=== PATIENT | female | born 1970 | race Caucasian/White ===

== ENCOUNTER 2018-04-20 22:11 | Emergency (ER) | payer OTHER ==
[~2018-04-20] VITALS: Ht 165.1 cm; Wt 108.9 kg
[~2018-04-20 22:11] MED LIST: AVALIDE 150/12.1 TAB; CATAFLAM50 MG PO; LISINOPRIL2.5 MG; SINGULAIR10 MG; ULTRACET PO
== END 2018-04-21 01:57 | disposition home or self-care (01) ==
LOC: ER 22:11
DX: N39.0 Urinary tract infection, site not specified (principal); R10.2 Pelvic and perineal pain

== ENCOUNTER 2018-10-07 11:46 | Emergency (ER) | payer OTHER ==
[~2018-10-07] VITALS: Ht 165.1 cm; Wt 108.9 kg
[2018-10-07] MEDS ORDERED: CIPRO500 MG PO (15:26)
== END 2018-10-07 21:31 | disposition home or self-care (01) ==
LOC: ER 11:46
DX: N39.0 Urinary tract infection, site not specified (principal)

== ENCOUNTER 2018-11-02 08:24 | Emergency (ER) | payer OTHER ==
[~2018-11-02] VITALS: Ht 165.1 cm; Wt 113.4 kg
[~2018-11-02 08:24] MED LIST changes: +CIPRO500 MG PO
== END 2018-11-02 11:15 | disposition home or self-care (01) ==
LOC: ER 08:24
DX: M62.838 Other muscle spasm (principal)

== ENCOUNTER 2019-01-27 17:13 | Emergency (ER) | payer OTHER ==
[~2019-01-27] VITALS: Ht 165.1 cm; Wt 113.4 kg
[2019-01-27] MEDS ORDERED: PRILOSEC10 MG (17:21)
== END 2019-01-27 22:35 | disposition home or self-care (01) ==
LOC: ER 17:13
DX: J06.9 Acute upper respiratory infection, unspecified (principal)

== ENCOUNTER 2019-05-12 17:26 | Emergency (ER) | payer OTHER ==
[~2019-05-12] VITALS: Ht 165.1 cm; Wt 108.9 kg
[~2019-05-12 17:26] MED LIST changes: +PRILOSEC10 MG
[2019-05-12] MEDS ORDERED: KETO10TA2 PO (19:54)
[2019-05-12] MEDS ORDERED: SKELAXIN800 MG PO (19:54)
== END 2019-05-12 20:00 | disposition home or self-care (01) ==
LOC: ER 17:26
DX: M62.830 Muscle spasm of back (principal)

== ENCOUNTER 2019-11-13 09:55 | Emergency (ER) | payer OTHER ==
[~2019-11-13] VITALS: Ht 165.1 cm; Wt 108.9 kg
[~2019-11-13 09:55] MED LIST changes: +KETO10TA2 PO; +SKELAXIN800 MG PO
== END 2019-11-13 14:14 | disposition home or self-care (01) ==
LOC: ER 09:55
DX: N39.0 Urinary tract infection, site not specified (principal); D25.1 Intramural leiomyoma of uterus

== ENCOUNTER 2020-09-13 15:23 | Emergency (ER) | payer OTHER ==
[~2020-09-13] VITALS: Ht 165.1 cm; Wt 108.9 kg
[2020-09-13] MEDS ORDERED: AVALIDE 300-121 EACH (16:22)
[2020-09-13] MEDS ORDERED: DICLOFENAC SODI75 MG PO (16:45)
[2020-09-13] MEDS ORDERED: NORFLEX100MG PO (16:45)
== END 2020-09-13 17:09 | disposition home or self-care (01) ==
LOC: ER 15:23
DX: M54.5 Low back pain (principal)

== ENCOUNTER 2021-04-03 20:19 | Emergency (ER) | payer OTHER ==
[~2021-04-03] VITALS: Ht 165.1 cm; Wt 109.8 kg
[~2021-04-03 20:19] MED LIST changes: +AVALIDE 300-121 EACH; +DICLOFENAC SODI75 MG PO; +NORFLEX100MG PO
[2021-04-03] MEDS ORDERED: ZESTRIL5 MG (20:35)
[2021-04-03] MEDS ORDERED: KETO10TA2 PO (23:01)
== END 2021-04-03 23:11 | disposition home or self-care (01) ==
LOC: ER 20:19
DX: S93.491A Sprain of other ligament of right ankle, initial encounter (principal); X50.0XXA Overexertion from strenuous movement or load, initial encounter; Y93.89 Activity, other specified; Y92.89 Other specified places as the place of occurrence of the external cause; Y99.8 Other external cause status

== ENCOUNTER 2021-05-21 16:24 | Emergency (ER) | payer OTHER ==
[~2021-05-21] VITALS: Ht 165.1 cm; Wt 111.1 kg
[~2021-05-21 16:24] MED LIST changes: +ZESTRIL5 MG
[2021-05-21] MEDS ORDERED: AVALIDE 300-121 EACH (16:39)
== END 2021-05-21 17:43 | disposition home or self-care (01) ==
LOC: ER 16:24
DX: M65.272 Calcific tendinitis, left ankle and foot (principal)

== ENCOUNTER 2021-08-17 08:00 | Outpatient (CLI) | payer OTHER | END 2021-08-17 08:30 | disposition home or self-care (01) | LOC: PPH VACUNA 08:00 | PROVIDERS: ATTEND Emergency Medicine Pediatric Emergency Medicine | DX: Z23 Encounter for immunization (principal) ==

== ENCOUNTER 2021-11-08 17:40 | Emergency (ER) | payer OTHER ==
[~2021-11-08] VITALS: Ht 165.1 cm; Wt 113.4 kg
[2021-11-09] MEDS ORDERED: LEVOFLOXACIN750 MG PO (00:48)
[2021-11-09] MEDS ORDERED: IPRAT-ALBUT 0.5-3 ML IH (00:48)
[2021-11-09] MEDS ORDERED: BUDESONIDE0.5 MG/2 M IH (00:48)
[2021-11-09] MEDS ORDERED: MUCINEX DM ER1 EAC1 PO (00:48)
== END 2021-11-09 03:27 ==
LOC: ER 17:40
DX: J45.901 Unspecified asthma with (acute) exacerbation (principal); B96.0 Mycoplasma pneumoniae [M. pneumoniae] as the cause of diseases classified elsewhere; Z20.822 Contact with and (suspected) exposure to COVID-19

== ENCOUNTER 2021-12-19 09:54 | Outpatient (CLI) | payer OTHER ==
[~2021-12-19 09:54] MED LIST changes: +BUDESONIDE0.5 MG/2 M IH; +IPRAT-ALBUT 0.5-3 ML IH; +LEVOFLOXACIN750 MG PO; +MUCINEX DM ER1 EAC1 PO
== END 2021-12-19 09:57 | disposition home or self-care (01) ==
LOC: TOM 09:54
PROVIDERS: ATTEND General Practice
DX: R22.1 Localized swelling, mass and lump, neck (principal)

== ENCOUNTER 2022-04-04 08:16 | Emergency (ER) | payer OTHER ==
[~2022-04-04] VITALS: Ht 165.1 cm; Wt 115.7 kg
== END 2022-04-04 13:31 | disposition home or self-care (01) ==
LOC: ER 08:16
DX: J45.909 Unspecified asthma, uncomplicated (principal); Z20.822 Contact with and (suspected) exposure to COVID-19

== ENCOUNTER 2022-08-22 12:20 | Emergency (ER) | payer OTHER ==
[~2022-08-22] VITALS: Ht 165.1 cm; Wt 113.4 kg
[2022-08-22] MEDS ORDERED: AVALIDE 300-121 EACH (12:53)
== END 2022-08-22 16:16 | disposition home or self-care (01) ==
LOC: ER 12:20
DX: J06.9 Acute upper respiratory infection, unspecified (principal); R53.81 Other malaise; R06.7 Sneezing; Z20.822 Contact with and (suspected) exposure to COVID-19

== ENCOUNTER 2022-08-26 21:54 | Emergency (ER) | payer OTHER ==
[~2022-08-26] VITALS: Ht 165.1 cm; Wt 113.4 kg
== END 2022-08-27 03:29 | disposition home or self-care (01) ==
LOC: ER 21:54
DX: J45.901 Unspecified asthma with (acute) exacerbation (principal); Z20.822 Contact with and (suspected) exposure to COVID-19

== ENCOUNTER 2022-11-16 15:49 | Emergency (ER) | payer OTHER ==
[~2022-11-16] VITALS: Ht 165.1 cm; Wt 145.1 kg
== END 2022-11-16 22:06 | disposition home or self-care (01) ==
LOC: ER 15:49
DX: S80.02XA Contusion of left knee, initial encounter (principal); W18.2XXA Fall in (into) shower or empty bathtub, initial encounter; Y93.E1 Activity, personal bathing and showering; Y92.012 Bathroom of single-family (private) house as the place of occurrence of the external cause

== ENCOUNTER → 2022-12-03 | Emergency (ER) | payer OTHER ==
[~2022-12-03] VITALS: Ht 165.1 cm; Wt 104.3 kg
== END | disposition home or self-care (01) ==
LOC: ER 08:33
DX: J20.9 Acute bronchitis, unspecified (principal); Z20.822 Contact with and (suspected) exposure to COVID-19

== ENCOUNTER 2023-01-02 17:29 | Emergency (ER) | payer OTHER ==
[~2023-01-02] VITALS: Ht 165.1 cm; Wt 113.4 kg
== END 2023-01-02 22:37 | disposition home or self-care (01) ==
LOC: ER 17:29
DX: B34.8 Other viral infections of unspecified site (principal); Z20.822 Contact with and (suspected) exposure to COVID-19

== ENCOUNTER 2023-01-16 09:49 | Emergency (ER) | payer OTHER ==
[~2023-01-16] VITALS: Ht 152.4 cm; Wt 113.4 kg
[2023-01-16] MEDS ORDERED: AVALIDE 300-121 EACH PO (10:13)
[2023-01-16] MEDS ORDERED: DICLOFENAC POTA50 MG PO (12:47)
== END 2023-01-16 13:59 | disposition home or self-care (01) ==
LOC: ER 09:49
DX: G44.209 Tension-type headache, unspecified, not intractable (principal)

== ENCOUNTER 2023-05-18 18:15 | Emergency (ER) | payer OTHER ==
[~2023-05-18] VITALS: Ht 167.6 cm; Wt 115.7 kg
[~2023-05-18 18:15] MED LIST changes: +AVALIDE 300-121 EACH PO; +DICLOFENAC POTA50 MG PO
== END 2023-05-18 21:42 | disposition home or self-care (01) ==
LOC: ER 18:15
DX: J45.909 Unspecified asthma, uncomplicated (principal); Z20.822 Contact with and (suspected) exposure to COVID-19

== ENCOUNTER 2023-12-21 12:34 | Emergency (ER) | payer OTHER ==
[~2023-12-21] VITALS: Ht 165.1 cm; Wt 115.7 kg
[2023-12-21] MEDS ORDERED: ONDANSETRON HCL 2 MG/ML VIAL IV STA (14:01)
[2023-12-21] MEDS ORDERED: 0.9 % SODIUM CHLORIDE 1,000 ML IV STA (14:01)
[2023-12-21 14:27] LABS: HEMATOCRIT 37.9 % (36.0-45.00); HEMOGLOBIN 12.9 g/dL (12.0-15.00); MEAN CELL VOLUME 94.1 fL (80.00-100.00); MEAN CORPUSCULAR HEMOGLOBIN 32.1 pg (27.00-32.0); MEAN CORPUSCULAR HGB CONC 34.1 g/dl (32.0-36.0); PLATELET COUNT 165 K/uL (150-450); RED BLOOD COUNT 4.03 M/uL (4.00-6.00); RED CELL DISTRIBUTION WIDTH 14.6 % (11.5-14.5)
[2023-12-21] MEDS ORDERED: KETOROLAC TROMETHAMINE 30 MG VIAL IV STA (14:33)
[2023-12-21 14:48] LABS: CALCIUM 9.1 mg/dL (8.5-10.1); CREATININE SERUM 0.83 mg/dL (0.55-1.02); GFR 72.19; POTASSIUM 3.9 mEq/L (3.5-5.1)
[2023-12-21 15:18] LABS: PH,URINE 7.5 (5.0-8.0); URINE APPEARANCE Cloudy; URINE BILIRRUBIN Negative (NEGATIVE); URINE BLOOD Large; URINE COLOR Yellow; URINE GLUCOSE Negative (NEGATIVE); URINE LEUKOCYTE Negative; URINE NITRATE Negative; URINE PROTEIN Trace (NEGATIVE)
[2023-12-21 15:22] LABS: URINE BACTERIA 4331.8 uL (0.0-1933); URINE EPITHELIAL CELLS 55.7 uL (0.0-38.8); URINE RBC 66.3 uL (0.0-20.8); URINE WBC 7.8 uL (0.0-23.2)
[2023-12-21] MEDS ORDERED: levoFLOXacin IN DEXTROSE 5 % 500MG/100ML PIGGYBAG IV ONE (16:15)
== END 2023-12-21 17:55 | disposition home or self-care (01) ==
LOC: ER 12:35
PROVIDERS: Emergency Medicine
DX: N39.0 Urinary tract infection, site not specified (principal); B34.9 Viral infection, unspecified; R11.10 Vomiting, unspecified; Z20.822 Contact with and (suspected) exposure to COVID-19; I10 Essential (primary) hypertension

== ENCOUNTER 2023-12-24 07:45 | Emergency (ER) | payer OTHER ==
[~2023-12-24] VITALS: Ht 165.1 cm; Wt 117.9 kg
[2023-12-24] MEDS ORDERED: DIPHENHYDRAMINE HCL 50 MG/ML VIAL 1ML IM STA (08:46)
[2023-12-24 09:42] LABS: PH,URINE 5.5 (5.0-8.0); URINE APPEARANCE Clear; URINE BILIRRUBIN Negative (NEGATIVE); URINE BLOOD Negative; URINE COLOR Yellow; URINE GLUCOSE Negative (NEGATIVE); URINE LEUKOCYTE Negative; URINE NITRATE Negative; URINE PROTEIN Trace (NEGATIVE); URINE UROBILINOGEN 0.2 E.U./dl
[2023-12-24 09:43] LABS: URINE BACTERIA 1702.1 uL (0.0-1933); URINE EPITHELIAL CELLS 24.4 uL (0.0-38.8); URINE RBC 10.7 uL (0.0-20.8); URINE WBC 11.8 uL (0.0-23.2)
[2023-12-24 09:47] LABS: HEMATOCRIT 42.9 % (36.0-45.00); HEMOGLOBIN 14.7 g/dL (12.0-15.00); MEAN CELL VOLUME 95.7 fL (80.00-100.00); MEAN CORPUSCULAR HEMOGLOBIN 32.9 pg (27.00-32.0); MEAN CORPUSCULAR HGB CONC 34.4 g/dl (32.0-36.0); PLATELET COUNT 170 K/uL (150-450); RED BLOOD COUNT 4.48 M/uL (4.00-6.00); RED CELL DISTRIBUTION WIDTH 14.5 % (11.5-14.5)
[2023-12-24 10:15] LABS: CREATININE SERUM 1.02 mg/dL (0.55-1.02); GFR 56.91; POTASSIUM 4.28 mEq/L (3.5-5.1)
[2023-12-24] MEDS ORDERED: KETOROLAC TROMETHAMINE 30 MG VIAL IM STA (10:33)
[2023-12-24] MEDS ORDERED: ONDANSETRON HCL 2 MG/ML VIAL IM STA (10:33)
== END 2023-12-24 10:46 | disposition home or self-care (01) ==
LOC: ER 07:45
PROVIDERS: General Practice
DX: R30.0 Dysuria (principal); M54.31 Sciatica, right side

== ENCOUNTER 2023-12-26 13:23 | Emergency (ER) | payer OTHER ==
[~2023-12-26] VITALS: Ht 165.1 cm; Wt 117.9 kg
[2023-12-26] MEDS ORDERED: METHYLPREDNISOLONE SOD SUCC 125 MG VIAL IM STA (14:08)
[2023-12-26] MEDS ORDERED: DIPHENHYDRAMINE HCL 50 MG/ML VIAL 1ML IM STA (14:11)
[2023-12-26 15:21] LABS: HEMOGLOBIN 14.1 g/dL (12.0-15.00); MEAN CELL VOLUME 93.4 fL (80.00-100.00); MEAN CORPUSCULAR HEMOGLOBIN 31.4 pg (27.00-32.0); MEAN CORPUSCULAR HGB CONC 33.6 g/dl (32.0-36.0); PLATELET COUNT 147 K/uL (150-450); RED CELL DISTRIBUTION WIDTH 14.7 % (11.5-14.5)
[2023-12-26 15:36] LABS: INR 1.02; PARTIAL THROMBOPLASTIN TIME 30.8 SECONDS (22.0-34.0); PROTHROMBIN TIME 10.7 SECONDS (9.0-11.5)
[2023-12-26 15:41] LABS: ALBUMIN 3.3 gm/dL (3.4-5.0); BILIRUBIN TOTAL 0.33 mg/dL (0.3-1.2); CALCIUM 8.8 mg/dL (8.5-10.1); CREATININE SERUM 0.77 mg/dL (0.55-1.02); GFR 78.72; POTASSIUM 3.9 mEq/L (3.5-5.1); TOTAL PROTEIN 7.3 gm/dL (6.4-8.2)
== END 2023-12-26 17:08 | disposition home or self-care (01) ==
LOC: ER 13:24
PROVIDERS: General Practice
DX: B08.8 Other specified viral infections characterized by skin and mucous membrane lesions (principal)

== ENCOUNTER 2024-05-04 12:15 | Emergency (ER) | payer OTHER ==
[~2024-05-04] VITALS: Ht 165.1 cm; Wt 113.4 kg
[2024-05-04] MEDS ORDERED: COZAAR25 MG PO (12:18)
[2024-05-04] MEDS ORDERED: SINGULAIR10 MG PO (12:18)
[2024-05-04] MEDS ORDERED: DEXAMETHASONE SODIUM PHOSPHATE 4 MG/ML VIAL IM ONE (12:45)
[2024-05-04] MEDS ORDERED: ACETAMINOPHEN 500 MG GEL..CAP PO ONE (12:45)
== END 2024-05-04 13:08 | disposition home or self-care (01) ==
LOC: ER 12:16
DX: U07.1 COVID-19 (principal); I10 Essential (primary) hypertension

== ENCOUNTER 2024-06-06 20:21 | Emergency (ER) | payer OTHER ==
[~2024-06-06] VITALS: Ht 165.1 cm; Wt 117.9 kg
[~2024-06-06 20:21] MED LIST changes: +COZAAR25 MG PO; +SINGULAIR10 MG PO
[2024-06-06] MEDS ORDERED: MONTELUKAST SOD10 MG (20:32)
[2024-06-06] MEDS ORDERED: IRBESARTAN-HCT1 EACH (20:32)
[2024-06-06] MEDS ORDERED: ENALAPRILAT DIHYDRATE 2.5 MG/2 ML VIAL IV STA (20:43)
[2024-06-06] MEDS ORDERED: ENALAPRILAT DIHYDRATE 1.25 MG/ML VIAL IV ONE (20:52)
[2024-06-06 21:37] LABS: HEMATOCRIT 38.8 % (36.0-45.00); HEMOGLOBIN 13.3 g/dL (12.0-15.00); MEAN CELL VOLUME 94.1 fL (80.00-100.00); MEAN CORPUSCULAR HEMOGLOBIN 32.3 pg (27.00-32.0); MEAN CORPUSCULAR HGB CONC 34.3 g/dl (32.0-36.0); PLATELET COUNT 188 K/uL (150-450); RED BLOOD COUNT 4.12 M/uL (4.00-6.00); RED CELL DISTRIBUTION WIDTH 14.5 % (11.5-14.5)
[2024-06-06 21:45] LABS: CALCIUM 9.1 mg/dL (8.5-10.1); CREATININE SERUM 0.79 mg/dL (0.55-1.02); GFR 76.42; POTASSIUM 3.76 mEq/L (3.5-5.1)
== END 2024-06-06 22:18 | disposition home or self-care (01) ==
LOC: ER 20:23
PROVIDERS: General Practice
DX: I10 Essential (primary) hypertension (principal); R51.9 Headache, unspecified; R07.89 Other chest pain

== ENCOUNTER 2024-07-23 16:00 | Emergency (ER) | payer OTHER ==
[~2024-07-23] VITALS: Ht 165.1 cm; Wt 108.9 kg
[~2024-07-23 16:00] MED LIST changes: +IRBESARTAN-HCT1 EACH; +MONTELUKAST SOD10 MG
[2024-07-23] MEDS ORDERED: ONDANSETRON HCL 2 MG/ML VIAL ONE (16:29)
[2024-07-23] MEDS ORDERED: FAMOTIDINE/PF 20 MG/2 ML VIAL ONE (16:29)
[2024-07-23] MEDS ORDERED: ONDANSETRON HCL 2 MG/ML VIAL IV ONE (16:30)
[2024-07-23] MEDS ORDERED: FAMOtidine 10 MG/ML (4ML VIAL) IV ONE (16:30)
[2024-07-23] MEDS ORDERED: 0.9 % SODIUM CHLORIDE 1,000 ML IV ONE (16:30)
[2024-07-23 16:50] LABS: HEMATOCRIT 38.6 % (36.0-45.00); HEMOGLOBIN 13.2 g/dL (12.0-15.00); MEAN CELL VOLUME 94.8 fL (80.00-100.00); MEAN CORPUSCULAR HEMOGLOBIN 32.4 pg (27.00-32.0); MEAN CORPUSCULAR HGB CONC 34.1 g/dl (32.0-36.0); PLATELET COUNT 184 K/uL (150-450); RED BLOOD COUNT 4.07 M/uL (4.00-6.00); RED CELL DISTRIBUTION WIDTH 14.4 % (11.5-14.5)
[2024-07-23 17:13] LABS: ALBUMIN 3.4 gm/dL (3.4-5.0); BILIRUBIN TOTAL 0.4 mg/dL (0.3-1.2); CALCIUM 8.8 mg/dL (8.5-10.1); CREATININE SERUM 0.98 mg/dL (0.55-1.02); GFR 59.6; GLOBULINA 3.7 G/DL (2.4-3.5); POTASSIUM 3.83 mEq/L (3.5-5.1); TOTAL PROTEIN 7.1 gm/dL (6.4-8.2)
[2024-07-23] MEDS ORDERED: PEPCID AC20 MG PO (17:34)
== END 2024-07-23 17:44 | disposition home or self-care (01) ==
LOC: ER 16:02
PROVIDERS: General Practice
DX: K29.70 Gastritis, unspecified, without bleeding (principal); R10.13 Epigastric pain; R11.0 Nausea; J45.909 Unspecified asthma, uncomplicated; I10 Essential (primary) hypertension
CPT/HCPCS: 36415; 93005; 96365; 99283; J2405; J3490; J7030

== ENCOUNTER 2024-11-19 08:35 | Emergency (ER) | payer OTHER ==
[~2024-11-19] VITALS: Ht 165.1 cm; Wt 117.9 kg
[~2024-11-19 08:35] MED LIST changes: +PEPCID AC20 MG PO
== END 2024-11-19 14:03 | disposition home or self-care (01) ==
LOC: ER 08:37
DX: J06.9 Acute upper respiratory infection, unspecified (principal); R05.9 Cough, unspecified; Z20.822 Contact with and (suspected) exposure to COVID-19

== ENCOUNTER 2025-02-04 12:11 | Emergency (ER) | payer OTHER ==
[~2025-02-04] VITALS: Ht 165.1 cm; Wt 117.9 kg
[2025-02-04 12:19] VITALS: BP 121/87; O2SAT 98
[2025-02-04] MEDS ORDERED: BUDESONIDE 0.5 MG/2 ML AMPUL.NEB IH STA (13:27)
[2025-02-04] MEDS ORDERED: LEVALBUTEROL HCL 1.25 MG/3 ML SOLUTION IH STA (13:27)
[2025-02-04] MEDS ORDERED: LEVALBUTEROL HCL 1.25 MG/3 ML SOLUTION IH ONE (13:35)
[2025-02-04] MEDS ORDERED: BUDESONIDE 0.5 MG/2 ML AMPUL.NEB IH ONE (13:35)
[2025-02-04 13:44] LABS: HEMATOCRIT 42.2 % (36.0-45.00); HEMOGLOBIN 13.9 g/dL (12.0-15.00); MEAN CELL VOLUME 96.8 fL (80.00-100.00); MEAN CORPUSCULAR HEMOGLOBIN 31.8 pg (27.00-32.0); MEAN CORPUSCULAR HGB CONC 32.8 g/dl (32.0-36.0); PLATELET COUNT 219 K/uL (150-450); RED BLOOD COUNT 4.36 M/uL (4.00-6.00); RED CELL DISTRIBUTION WIDTH 14.3 % (11.5-14.5)
== END 2025-02-04 16:37 | disposition home or self-care (01) ==
LOC: ER 12:12
PROVIDERS: General Practice
DX: B34.9 Viral infection, unspecified (principal); I10 Essential (primary) hypertension; Z87.09 Personal history of other diseases of the respiratory system; Z20.822 Contact with and (suspected) exposure to COVID-19

== ENCOUNTER → 2025-03-04 | Emergency (ER) | payer OTHER ==
[~2025-03-04] VITALS: Ht 165.1 cm; Wt 122.5 kg
[~2025-03-04] MED LIST changes: +HYDROCODONE/CHLORPHEN P-STIREX 5 ML ML PO STA; +METHYLPREDNISOLONE SOD SUCC 125 MG VIAL IV STA; +METHYLPREDNISOLONE SOD SUCC 125 MG VIAL ONE
[2025-03-04 16:04] LABS: INFLUENZA A AG NEGATIVE (NEGATIVE)
[2025-03-04 16:11] LABS: COVID-19 AG NEGATIVE (NEGATIVE)
== END | disposition home or self-care (01) ==
LOC: ER 13:28
PROVIDERS: General Practice
DX: B34.9 Viral infection, unspecified (principal); J45.909 Unspecified asthma, uncomplicated; I10 Essential (primary) hypertension; J06.9 Acute upper respiratory infection, unspecified; Z20.822 Contact with and (suspected) exposure to COVID-19
CPT/HCPCS: 36415; 96365; 99282; J3490

== ENCOUNTER 2025-03-20 17:24 | Emergency (ER) | payer OTHER ==
[~2025-03-20] VITALS: Ht 165.1 cm; Wt 122.5 kg
[~2025-03-20 17:24] MED LIST changes: -HYDROCODONE/CHLORPHEN P-STIREX 5 ML ML PO STA; -METHYLPREDNISOLONE SOD SUCC 125 MG VIAL IV STA; -METHYLPREDNISOLONE SOD SUCC 125 MG VIAL ONE
[2025-03-20] MEDS ORDERED: 0.9 % SODIUM CHLORIDE 1,000 ML IV ONE (19:00)
[2025-03-20] MEDS ORDERED: KETOROLAC TROMETHAMINE 30 MG VIAL IV ONE (19:00)
[2025-03-20 19:22] LABS: BASO % 0.5 % (0.1-1.2); EOS # 0.23 (0.04-0.54); EOS % 2.1 % (0.7-7.0); HEMATOCRIT 40.3 % (34.1-44.9); HEMOGLOBIN 13.2 g/dL (11.2-15.7); LYMPH # 3.38 (1.18-3.74); LYMPH % 30.5 % (19.3-53.1); MEAN CORPUSCULAR HEMOGLOBIN 31.4 pg (25.6-32.2); MONO # 0.88 (0.24-0.82); MONO % 7.9 % (4.7-12.5); NEUT % 58.7 % (34.0-71.1); PLATELET COUNT 188 K/uL (163-369); RED CELL DISTRIBUTION WIDTH 13.4 % (11.6-14.4)
[2025-03-20 19:43] LABS: PARTIAL THROMBOPLASTIN TIME 26.5 SECONDS (22.0-34.0); PROTHROMBIN TIME 10.9 SECONDS (9.0-11.5)
[2025-03-20 20:10] LABS: ALBUMIN 3.4 gm/dL (3.4-5.0); BILIRUBIN TOTAL 0.26 mg/dL (0.3-1.2); CALCIUM 8.6 mg/dL (8.5-10.1); CREATININE SERUM 1.04 mg/dL (0.55-1.02); GFR 55.43; GLOBULINA 3.7 G/DL (2.4-3.5); POTASSIUM 3.9 mEq/L (3.5-5.1); TOTAL PROTEIN 7.1 gm/dL (6.4-8.2)
[2025-03-20 20:36] LABS: URINE APPEARANCE Clear; URINE BILIRRUBIN Negative (NEGATIVE); URINE BLOOD Negative; URINE COLOR Yellow; URINE GLUCOSE Negative (NEGATIVE); URINE KETONE Negative (NEGATIVE); URINE LEUKOCYTE Negative; URINE NITRATE Negative; URINE PROTEIN Trace (NEGATIVE); URINE UROBILINOGEN 0.2 E.U./dl
[2025-03-20 20:40] LABS: URINE EPITHELIAL CELLS 60.6 uL (0.0-38.8); URINE RBC 14.8 uL (0.0-20.8); URINE WBC 57.3 uL (0.0-23.2)
[2025-03-20 20:58] LABS: URINE BACTERIA > 9821.5 uL (0.0-1933); URINE CAST 0.58 uL (0.0-1.40)
[2025-03-20] MEDS ORDERED: CIPRO500 MG PO (22:38)
[2025-03-20] MEDS ORDERED: LEVSIN/SL0.125 MG SL (22:38)
[2025-03-20] MEDS ORDERED: PROTONIX40 MG PO (22:38)
[2025-03-20] MEDS ORDERED: PROBIOTIC1 EAC2 PO (22:38)
[2025-03-20] MEDS ORDERED: METRONIDAZOLE500 MG PO (22:38)
== END 2025-03-20 22:57 | disposition home or self-care (01) ==
LOC: ER 17:48
PROVIDERS: General Practice
DX: K59.00 Constipation, unspecified (principal); I10 Essential (primary) hypertension; J45.909 Unspecified asthma, uncomplicated; K65.4 Sclerosing mesenteritis; K57.32 Diverticulitis of large intestine without perforation or abscess without bleeding
CPT/HCPCS: 36415; 74177; Q9965

== ENCOUNTER 2025-07-09 17:54 | Emergency (ER) | payer OTHER ==
[~2025-07-09] VITALS: Ht 165.1 cm; Wt 113.4 kg
[~2025-07-09 17:54] MED LIST changes: +LEVSIN/SL0.125 MG SL; +METRONIDAZOLE500 MG PO; +PROBIOTIC1 EAC2 PO; +PROTONIX40 MG PO
[2025-07-09] MEDS ORDERED: LEVALBUTEROL HCL 1.25 MG/3 ML SOLUTION IH SCH (18:30)
[2025-07-09] MEDS ORDERED: HYDROCODONE/CHLORPHEN P-STIREX 5 ML ML PO ONE (18:30)
[2025-07-09] MEDS ORDERED: METHYLPREDNISOLONE SOD SUCC 125 MG VIAL IV ONE (18:30)
[2025-07-09] MEDS ORDERED: METHYLPREDNISOLONE SOD SUCC 125 MG VIAL ONE (19:03)
[2025-07-09] MEDS ORDERED: LEVALBUTEROL HCL 0.63 MG/3 ML SOLUTION IH ONE (19:41)
[2025-07-09] MEDS ORDERED: IPRAT-ALBUT 0.5-3 ML IH (19:59)
[2025-07-09] MEDS ORDERED: TUSNEL LIQUID178 ML PO (19:59)
[2025-07-09] MEDS ORDERED: MEDROLPACK PO (19:59)
== END 2025-07-09 21:55 | disposition home or self-care (01) ==
LOC: ER 17:54
DX: J45.909 Unspecified asthma, uncomplicated (principal)

== ENCOUNTER 2025-07-15 09:05 | Inpatient (IN) | payer OTHER ==
[~2025-07-15] VITALS: Ht 165.1 cm; Wt 115.7 kg
[~2025-07-15 09:05] MED LIST changes: +MEDROLPACK PO; +TUSNEL LIQUID178 ML PO
[2025-07-15] MEDS ORDERED: ALBUTEROL SULFATE 3 ML/2.5 MG AMPUL.NEB IH STA ×2 (09:30→10:26)
[2025-07-15] MEDS ORDERED: BUDESONIDE 0.25 MG/2 ML AMPUL.NEB IH STA (09:31)
[2025-07-15] MEDS ORDERED: BUDESONIDE 0.5 MG/2 ML AMPUL.NEB IH ONE (09:42)
[2025-07-15] MEDS ORDERED: ALBUTEROL SULFATE 3 ML/2.5 MG AMPUL.NEB IH ONE (09:43)
[2025-07-15] MEDS ORDERED: METHYLPREDNISOLONE SOD SUCC 125 MG VIAL IV STA (10:27)
[2025-07-15] MEDS ORDERED: IPRATROPIUM BROMIDE 0.5 MG/2.5 ML AMPUL.NEB IH STA (10:27)
[2025-07-15] MEDS ORDERED: METHYLPREDNISOLONE SOD SUCC 125 MG VIAL ONE (10:47)
[2025-07-15 10:48] LABS: BASO % 0.1 % (0.1-1.2); EOS # 0.01 (0.04-0.54); EOS % 0.1 % (0.7-7.0); LYMPH # 1.67 (1.18-3.74); LYMPH % 9.7 % (19.3-53.1); MEAN PLATELET VOLUME 11.20 fl (9.4-12.4); MONO # 0.59 (0.24-0.82); MONO % 3.4 % (4.7-12.5); NEUT # 14.91 (1.56-6.13); NEUT % 86.2 % (34.0-71.1); RED CELL DISTRIBUTION WIDTH 14.4 % (11.6-14.4)
[2025-07-15] MEDS ORDERED: 0.9 % SODIUM CHLORIDE 1,000 ML IV STA (11:35)
[2025-07-15] MEDS ORDERED: PIPERACILLIN/TAZOBACTAM SODIUM 4.5 GM VIAL IV STA (11:35)
[2025-07-15] MEDS ORDERED: CODEINE/PROMETHAZINE HCL 1 ML ML PO STA (12:24)
[2025-07-15 13:10] LABS: URINE APPEARANCE Clear; URINE BILIRRUBIN Negative (NEGATIVE); URINE BLOOD Negative; URINE COLOR Yellow; URINE GLUCOSE Negative (NEGATIVE); URINE KETONE Negative (NEGATIVE); URINE LEUKOCYTE Negative; URINE NITRATE Negative; URINE PROTEIN Negative (NEGATIVE); URINE UROBILINOGEN 0.2 E.U./dl
[2025-07-15 13:11] LABS: URINE BACTERIA 629.7 uL (0.0-1933); URINE EPITHELIAL CELLS 14.4 uL (0.0-38.8); URINE RBC 2.1 uL (0.0-20.8); URINE WBC 3.3 uL (0.0-23.2)
[2025-07-15 13:18] LABS: URINE CAST 0.29 uL (0.0-1.40)
[2025-07-15 13:22] LABS: COVID-19 AG NEGATIVE (NEGATIVE)
[2025-07-15 13:44] LABS: BUN CREA RATIO 23.0 (7.0-25.0); CREATININE SERUM 0.78 mg/dL (0.55-1.02); GFR 77.26; GLUCOSE FASTING 152.0 mg/dL (65-100); OSMOLALITY SERUM 286.0 MOSM/KG (275-295)
[2025-07-15 13:53] LABS: INR 1.0
[2025-07-15] MEDS ORDERED: IPRATROPIUM BROMIDE 0.5 MG/2.5 ML AMPUL.NEB IH ONE (14:10)
[2025-07-15] MEDS ORDERED: LEVALBUTEROL HCL 1.25 MG/3 ML SOLUTION IH ONE (14:10)
[2025-07-15] MEDS ORDERED: 0.9 % SODIUM CHLORIDE 1,000 ML IV SCH (16:15)
[2025-07-15] MEDS ORDERED: FAMOTIDINE/PF 20 MG in 0.9 % SODIUM CHLORIDE 8 ML IV PUSH SCH (16:27)
[2025-07-15] MEDS ORDERED: ACETAMINOPHEN 500 MG GEL..CAP PO PRN (16:30)
[2025-07-15] MEDS ORDERED: METHYLPREDNISOLONE SOD SUCC 40 MG VIAL IV SCH (17:00)
[2025-07-15] MEDS ORDERED: LEVALBUTEROL HCL 1.25 MG/3 ML SOLUTION IH SCH (17:00)
[2025-07-15] MEDS ORDERED: IPRATROPIUM BROMIDE 0.5 MG/2.5 ML AMPUL.NEB IH SCH (17:00)
[2025-07-15] MEDS ORDERED: DOXYCYCLINE HYCLATE 100MG IV SCH (17:00)
[2025-07-15] MEDS ORDERED: GUAIFEN/DEXTROMETHORPHAN/PE 10 ML BLIST.PACK PO SCH (17:00)
[2025-07-15] MEDS ORDERED: MONTELUKAST SODIUM 10 MG TABLET PO SCH (17:00)
[2025-07-15] MEDS ORDERED: FAMOTIDINE/PF 20 MG/2 ML VIAL ONE (18:15)
[2025-07-15] MEDS ORDERED: GUAIFEN/DEXTROMETHORPHAN/PE 10 ML BLIST.PACK PO ONE (18:15)
[2025-07-15] MEDS ORDERED: METHYLPREDNISOLONE SOD SUCC 40 MG VIAL ONE (18:15)
[2025-07-15] MEDS ORDERED: MONTELUKAST SODIUM 10 MG TABLET PO ONE (18:15)
[2025-07-15 21:57] VITALS: BP 125/78
[2025-07-16] MEDS ORDERED: DOXYCYCLINE HYCLATE 100MG IV ONE (03:05)
[2025-07-16 03:33] VITALS: BP 129/75; O2SAT 97
[2025-07-16 08:21] VITALS: BP 137/82; O2SAT 95
[2025-07-16] MEDS ORDERED: CEFTRIAXONE SODIUM 2,000 MG in 0.9 % SODIUM CHLORIDE 100 ML IV SCH (09:00)
[2025-07-16 14:12] LABS: BASO % 0.2 % (0.1-1.2); EOS # 0.00 (0.04-0.54); EOS % 0.0 % (0.7-7.0); LYMPH # 2.14 (1.18-3.74); LYMPH % 9.2 % (19.3-53.1); MEAN PLATELET VOLUME 11.60 fl (9.4-12.4); MONO # 1.06 (0.24-0.82); MONO % 4.6 % (4.7-12.5); NEUT # 19.77 (1.56-6.13); NEUT % 85.2 % (34.0-71.1); RED CELL DISTRIBUTION WIDTH 14.5 % (11.6-14.4)
[2025-07-16 14:37] LABS: BUN CREA RATIO 23.0 (7.0-25.0); CREATININE SERUM 0.8 mg/dL (0.55-1.02); GFR 75.03; GLUCOSE FASTING 183.0 mg/dL (65-100); OSMOLALITY SERUM 286.0 MOSM/KG (275-295)
[2025-07-16 16:35] VITALS: BP 127/77; O2SAT 97
[2025-07-17] MEDS ORDERED: GUAIFENESIN/DEXTROMETHORPHAN 100MG/10ML BLIST.PACK PO PRN (08:15)
[2025-07-17 09:00] VITALS: BP 133/88; O2SAT 98
[2025-07-17] MEDS ORDERED: BENZONATATE 200 MG CAPSULE PO SCH (09:00)
[2025-07-17 16:24] VITALS: BP 132/76; O2SAT 98
[2025-07-17] MEDS ORDERED: DOXYCYCLINE HYCLATE 100MG IV SCH (17:00)
[2025-07-17] MEDS ORDERED: MAGNESIUM SULFATE 10,000 MG/20 ML VIAL IV ONE (22:00)
[2025-07-18 02:09] VITALS: BP 134/74; O2SAT 94
[2025-07-18 07:27] LABS: BASO % 0.2 % (0.1-1.2); EOS # 0.00 (0.04-0.54); EOS % 0.0 % (0.7-7.0); LYMPH # 1.83 (1.18-3.74); LYMPH % 10.0 % (19.3-53.1); MEAN PLATELET VOLUME 11.80 fl (9.4-12.4); MONO # 0.84 (0.24-0.82); MONO % 4.6 % (4.7-12.5); NEUT # 15.23 (1.56-6.13); NEUT % 83.3 % (34.0-71.1); RED CELL DISTRIBUTION WIDTH 14.5 % (11.6-14.4)
[2025-07-18 07:53] LABS: BUN CREA RATIO 27.0 (7.0-25.0); CREATININE SERUM 0.79 mg/dL (0.55-1.02); GFR 76.13; GLUCOSE FASTING 179.0 mg/dL (65-100); OSMOLALITY SERUM 287.0 MOSM/KG (275-295)
[2025-07-18 09:37] VITALS: BP 131/84
[2025-07-18 18:15] VITALS: BP 150/80; O2SAT 96
[2025-07-19 01:57] VITALS: BP 129/74; O2SAT 97
[2025-07-19 08:02] VITALS: BP 132/74
[2025-07-19 18:42] VITALS: BP 146/85; O2SAT 98
== END 2025-07-19 22:30 | DRG 202 ==
LOC: ER 09:05 → SEC-K 16:40 → MEDI 16:40 → MEDJ 07-17 20:31
PROVIDERS: General Practice; Internal Medicine; ADMIT Internal Medicine; ATTEND Internal Medicine
PROC: 8E0ZXY6 Isolation (ICD-10-PCS; principal; 2025-07-15)
PROC: BB24ZZZ Computerized Tomography (CT Scan) of Bilateral Lungs (ICD-10-PCS; 2025-07-15)
PROC: 3E0F7GC Introduction of Other Therapeutic Substance into Respiratory Tract, Via Natural or Artificial Opening (ICD-10-PCS; 2025-07-15)
DX: J20.0 Acute bronchitis due to Mycoplasma pneumoniae (principal); J45.41 Moderate persistent asthma with (acute) exacerbation; R05.3 Chronic cough; D72.828 Other elevated white blood cell count

== ENCOUNTER 2025-09-07 10:21 | Emergency (ER) | payer OTHER ==
[~2025-09-07] VITALS: Ht 165.1 cm; Wt 115.7 kg
[2025-09-07] MEDS ORDERED: CODEINE PHOSPHATE/GUAIFENESIN 5 ML ML PO ONE (12:30)
[2025-09-07] MEDS ORDERED: IPRATROPIUM/ALBUTEROL SULFATE 3 ML AMPUL.NEB IH ONE (12:30)
[2025-09-07] MEDS ORDERED: METHYLPREDNISOLONE SOD SUCC 125 MG VIAL IV ONE (12:30)
[2025-09-07] MEDS ORDERED: KETOROLAC TROMETHAMINE 30 MG VIAL IV ONE (12:30)
[2025-09-07] MEDS ORDERED: GUAIFENESIN/DEXTROMETHORPHAN 100MG/10ML BLIST.PACK PO ONE (12:31)
[2025-09-07] MEDS ORDERED: METHYLPREDNISOLONE SOD SUCC 125 MG VIAL ONE ×2 (12:31→12:59)
[2025-09-07] MEDS ORDERED: KETOROLAC TROMETHAMINE 30 MG VIAL ONE ×2 (12:31→12:58)
[2025-09-07] MEDS ORDERED: IPRATROPIUM BROMIDE 0.5 MG/2.5 ML AMPUL.NEB IH ONE (12:43)
[2025-09-07] MEDS ORDERED: LEVALBUTEROL HCL 1.25 MG/3 ML SOLUTION IH ONE (12:46)
[2025-09-07 13:03] LABS: BASO % 0.7 % (0.1-1.2); EOS # 0.11 (0.04-0.54); EOS % 1.2 % (0.7-7.0); LYMPH # 2.24 (1.18-3.74); LYMPH % 24.7 % (19.3-53.1); MEAN PLATELET VOLUME 10.70 fl (9.4-12.4); MONO # 0.60 (0.24-0.82); MONO % 6.6 % (4.7-12.5); NEUT # 6.03 (1.56-6.13); NEUT % 66.4 % (34.0-71.1); RED CELL DISTRIBUTION WIDTH 14.9 % (11.6-14.4)
[2025-09-07 13:27] LABS: ERYTHROCYTE SEDIMENTATION RATE 45 mm/hr (0-30)
[2025-09-07 13:39] LABS: ALT/SGPT 61.0 U/L (12-78); AST/SGOT 46.0 U/L (15-37); BILIRUBIN TOTAL 0.41 mg/dL (0.3-1.2); BUN CREA RATIO 18.0 (7.0-25.0); CREATININE SERUM 0.68 mg/dL (0.55-1.02); GFR 90.51; GLOBULINA 3.5 G/DL (2.4-3.5); GLUCOSE FASTING 144.0 mg/dL (65-100); OSMOLALITY SERUM 287.0 MOSM/KG (275-295)
[2025-09-07 13:53] LABS: ob NEGATIVE (NEGATIVE)
[2025-09-07 15:40] LABS: COVID-19 AG NEGATIVE (NEGATIVE)
[2025-09-07] MEDS ORDERED: ANUSOL-HC30 G2 TOP (17:20)
[2025-09-07] MEDS ORDERED: PROMETHAZINE W473 ML PO (17:20)
== END 2025-09-07 18:28 | disposition home or self-care (01) ==
LOC: ER 10:21
PROVIDERS: Student in an Organized Health Care Education/Training Program
DX: J45.901 Unspecified asthma with (acute) exacerbation (principal); J18.9 Pneumonia, unspecified organism; K64.4 Residual hemorrhoidal skin tags; Z20.822 Contact with and (suspected) exposure to COVID-19